=== PATIENT | female | born 1995 | race Caucasian/White ===

== ENCOUNTER 2021-01-24 21:40 | Emergency (ER) | payer MEDICAID ==
[~2021-01-24] VITALS: Ht 162.6 cm; Wt 80.1 kg
[2021-01-24] MEDS ORDERED: SODIUM CHLORIDE 0.9% 1,000 ML IV ONE (22:45)
[2021-01-24] MEDS ORDERED: ONDANSETRON HCL 4MG/2ML INJ IV ONE (22:45)
[2021-01-24 23:31] LABS: BASOPHILS % 0.3 % (0.0-2.0); EOSINOPHILS % 0.5 % (0.0-5.0); HEMATOCRIT. 38.4 % (36.0-48.0); HEMOGLOBIN. 13.4 g/dL (12.0-16.0); LYMPHOCYTES % 15.2 % (20.0-50.0); MEAN CORPUSCULAR HEMOGLOBIN 32.4 pg (28.0-32.0); MEAN PLATELET VOLUME 10.3 fl (7.4-10.4); MONOCYTES % 6.6 % (2.0-8.0); NEUTROPHILS % 77.4 % (40.0-76.0); PLATELET 133 x1000/uL (130-400); RED BLOOD CELL COUNT 4.13 mill/uL (4.2-5.4); RED CELL DISTRIBUTION WIDTH 14.3 % (11.6-14.6)
[2021-01-24 23:41] LABS: CHLORIDE 106 mEq/L (98-107)
[2021-01-24 23:59] LABS: CLARITY URINE CLEAR (CLEAR); COLOR URINE DARK YELLOW (YELLOW); KETONES URINE 4+ (NEGATIVE); LEUKOCYTE ESTERASE URINE NEGATIVE (NEGATIVE); NITRITE URINE NEGATIVE (NEGATIVE); OCCULT BLOOD URINE NEGATIVE (NEGATIVE); PROTEIN URINE TRACE (NEGATIVE); SPECIFIC GRAVITY URINE 1.027 (1.005-1.030)
[2021-01-25 01:37] LABS: B-HCG QUANTITATIVE 46710 mIU/mL (<3)
[2021-01-25] MEDS ORDERED: ONDA4TAB5 MT (02:47)
[2021-01-25 02:57] VITALS: BP 135/79
== END 2021-01-25 02:52 | disposition home or self-care (01) ==
LOC: ER 21:40
DX: O21.0 Mild hyperemesis gravidarum (principal); O26.891 Other specified pregnancy related conditions, first trimester; R10.30 Lower abdominal pain, unspecified; Z3A.01 Less than 8 weeks gestation of pregnancy; Z98.890 Other specified postprocedural states; Z79.899 Other long term (current) drug therapy
CPT/HCPCS: 36415; 76801; 76817; 80053; 81003; 83690; 84702; 85025; 86850; 86900; 86901; 96374; 99284; J2405; J7030

== ENCOUNTER 2021-06-11 14:07 | Observation (INO) | payer MEDICAID ==
[~2021-06-11] VITALS: Ht 160 cm; Wt 81.6 kg
[~2021-06-11 14:07] MED LIST: ONDA4TAB5 MT
[2021-06-11] MEDS ORDERED: LACTATED RINGERS 1,000 ML IV SCH (16:00)
[2021-06-11 16:26] LABS: CLARITY URINE CLOUDY (CLEAR); COLOR URINE DARK YELLOW (YELLOW); KETONES URINE 4+ (NEGATIVE); LEUKOCYTE ESTERASE URINE 1+ (NEGATIVE); NITRITE URINE POSITIVE (NEGATIVE); OCCULT BLOOD URINE 3+ (NEGATIVE); PROTEIN URINE 2+ (NEGATIVE); SPECIFIC GRAVITY URINE 1.028 (1.005-1.030)
[2021-06-11] MEDS ORDERED: ACETAMINOPHEN 500MG TABLET PO NR (17:30)
[2021-06-11] MEDS ORDERED: CEFAZOLIN 2,000 MG in DEXT 5% WATER 100 ML IV NR (18:00)
[2021-06-11] MEDS ORDERED: PREN1TAB78 PO (19:04)
== END 2021-06-11 19:30 | disposition home or self-care (01) ==
LOC: 8 EST LDRP 14:07
PROVIDERS: ADMIT Obstetrics & Gynecology; ATTEND Obstetrics & Gynecology
DX: O26.892 Other specified pregnancy related conditions, second trimester (principal); R10.30 Lower abdominal pain, unspecified; Z3A.26 26 weeks gestation of pregnancy; Z20.822 Contact with and (suspected) exposure to COVID-19
CPT/HCPCS: 81003; 87426; 96361; 96365; G0378; J0690; J7060; 96360; 99281; J7120

== ENCOUNTER 2021-12-20 09:06 | Emergency (ER) | payer MEDICAID ==
[~2021-12-20] VITALS: Ht 162.6 cm; Wt 90.0 kg
[~2021-12-20 09:06] MED LIST changes: -ONDA4TAB5 MT; +PREN1TAB78 PO
[2021-12-20] MEDS ORDERED: ACETAMINOPHEN 325MG TABLET PO STA (09:43)
[2021-12-20] MEDS ORDERED: ONDANSETRON 4MG ODT PO ONE (09:45)
[2021-12-20 10:38] LABS: BASOPHILS % 0.7 % (0.0-2.0); EOSINOPHILS % 0.4 % (0.0-5.0); HEMATOCRIT. 38.9 % (36.0-48.0); HEMOGLOBIN. 13.3 g/dL (12.0-16.0); LYMPHOCYTES % 18.1 % (20.0-50.0); MEAN CORPUSCULAR HEMOGLOBIN 31.7 pg (28.0-32.0); MEAN CORPUSCULAR VOLUME 92.9 fL (81.0-99.0); MEAN PLATELET VOLUME 8.2 fl (7.4-10.4); MONOCYTES % 6.4 % (2.0-8.0); NEUTROPHILS % 74.4 % (40.0-76.0); PLATELET 278 x1000/uL (130-400); RED BLOOD CELL COUNT 4.19 mill/uL (4.2-5.4); RED CELL DISTRIBUTION WIDTH 13.4 % (11.6-14.6)
[2021-12-20 10:39] LABS: CLARITY URINE CLOUDY (CLEAR); COLOR URINE DARK YELLOW (YELLOW); KETONES URINE 4+ (NEGATIVE); LEUKOCYTE ESTERASE URINE 3+ (NEGATIVE); NITRITE URINE NEGATIVE (NEGATIVE); OCCULT BLOOD URINE 3+ (NEGATIVE); PROTEIN URINE 1+ (NEGATIVE); SPECIFIC GRAVITY URINE 1.028 (1.005-1.030)
[2021-12-20 10:48] LABS: CHLORIDE 105 mEq/L (98-107)
[2021-12-20 11:10] LABS: B-HCG QUANTITATIVE 72376 mIU/mL (<3)
[2021-12-20] MEDS ORDERED: CEPH500C2 MT (12:18)
[2021-12-20] MEDS ORDERED: ONDA4TAB11 PO (12:18)
[2021-12-20] MEDS ORDERED: ACETAMINOPHEN 325MG TABLET PO NR (12:30)
[2021-12-20] MEDS ORDERED: ONDANSETRON 4MG ODT PO NR (12:30)
[2021-12-20 12:38] VITALS: BP 110/64
== END 2021-12-20 12:59 | disposition home or self-care (01) ==
LOC: ER 09:45
DX: O20.0 Threatened abortion (principal); Z3A.01 Less than 8 weeks gestation of pregnancy; Z98.890 Other specified postprocedural states
CPT/HCPCS: 36415; 76801; 76817; 80053; 81003; 84702; 85025; 86850; 86900; 86901; 87086; 99284; Q0162

== ENCOUNTER 2024-11-13 09:32 | Emergency (ER) | payer MEDICAID ==
[~2024-11-13] VITALS: Ht 162.6 cm; Wt 95.0 kg
[~2024-11-13 09:32] MED LIST changes: +CEPH500C2 MT; +ONDA-239 PO
[2024-11-13 09:38] VITALS: O2SAT 99
[2024-11-13 09:43] VITALS: BP 126/67; PULSE 105; RESP 16; TEMP 36.7; O2SAT 100
== END 2024-11-13 09:53 | disposition left against medical advice (07) ==
LOC: ER 09:32
DX: O46.93 Antepartum hemorrhage, unspecified, third trimester (principal); O99.313 Alcohol use complicating pregnancy, third trimester; Z3A.33 33 weeks gestation of pregnancy
CPT/HCPCS: 99281